=== PATIENT | female | born 1995 | race Caucasian/White ===

== ENCOUNTER 2018-01-27 20:37 | Emergency (ER) | payer SELFPAY ==
--- NOTE | 2018-01-27 20:51 | ER Report ---
History and Physical Time Seen By MD: 20:50 HPI/ROS CHIEF COMPLAINT: abnormal kidney function tests, abdominal pain HISTORY OF PRESENT ILLNESS: This is a 22 year old female. She was sent to the ER from [facility]. Had been there yesterday and labs done, came back with creatinine at 5.00 (labs were send outs), came back today for IV fluids and repeat labs and creatinine was up to 7.00. She has no history of kidney problems in the past. She gives a history of this weekend (Wednesday ) having sexual intercourse with a new partner. Condom broke and she took Plan B on Wednesday morning. Had intercourse again Wednesday night, and condom broke again , so Took Plan B again on Wednesday. Abdominal pain started Wednesday, slowly worsening over the week. Describes the pain as diffuse, but a little worse in the lower abdomen. No radiation. She is having a little bit of discharge. No history of STDs and had testing about 2 months ago. No fever or chills. No history of kidney problems in the past. No prior labs available for evaluation. The only other medications she is on is control. She uses aspirin for pain and has had about 15 aspirin over the last few days, and perhaps 6 of the over the counter 200mg Ibuprofen tablets. No other over the counter medications. REVIEW OF SYSTEMS: Constitutional: No fever or chills. Eyes: No vision changes. ENT: No sore throat. No congestion. Cardiovascular: No chest pain. No palpitations. Respiratory: No cough. No shortness of breath. Gastrointestinal: As above. Genitourinary: No dysuria. Musculoskeletal: No back pain. No extremity pain. Skin: No rashes. Neurological: No numbness. No weakness. Allergies: Coded Allergies: No Known Drug Allergies (Unverified , 01/27/18) Home Meds Reported Medications Promethazine Hcl (PROMETHAZINE HCL) 25 Mg Tablet, 25 MG PO Q8H, TAB 01/27/18 Hydrocodone Bit/Acetaminophen (HYDROCODON-ACETAMINOPHEN 5-325) 1 Each Tablet, 1- 2 EACH PO Q6H Y for PAIN, TAB 01/27/18 [ control] No Conflict Check, 1 TAB PO QDAY 01/27/18 Past Medical/Surgical History Urinary tract infections, thoracic rods for scoliosis, right ankle fracture, depression Reviewed Nurses Notes: Yes Constitutional Vital Sign - Last 24 Hours 01/27/18 01/27/18 01/27/18 01/27/18 20:47 20:47 20:50 20:52 Temp 97.6 Pulse 79 69 Resp 16 B/P (MAP) 138/94 (109) 138/94 (109) 138/94 Pulse Ox 96 98 O2 Delivery Room Air 01/27/18 01/27/18 01/27/18 01/27/18 20:52 21:00 21:00 21:07 Pulse 69 64 B/P (MAP) 140/100 (113) 140/100 (113) Pulse Ox 98 97 01/27/18 01/27/18 01/27/18 01/27/18 21:07 21:22 21:22 21:52 Pulse 64 69 69 69 Pulse Ox 97 91 91 97 01/27/18 01/27/18 01/27/18 01/27/18 21:52 22:07 22:07 22:22 Pulse 69 59 59 63 Pulse Ox 97 96 96 98 01/27/18 01/27/18 01/27/18 01/27/18 22:22 22:27 22:30 22:42 Pulse 63 56 ? Pulse Ox 98 99 96 01/27/18 01/27/18 01/27/18 01/27/18 22:44 22:44 22:45 22:57 Pulse 64 63 B/P (MAP) 127/97 (107) 127/97 (107) Pulse Ox 95 96 01/27/18 01/27/18 01/27/18 01/27/18 23:00 23:00 23:12 23:15 Pulse ??? 76 78 B/P (MAP) 123/81 (95) 123/81 (95) Pulse Ox 96 92 95 01/27/18 01/27/18 01/27/18 01/27/18 23:20 23:27 23:30 23:30 Pulse 66 81 B/P (MAP) 128/84 (99) 128/84 (99) Pulse Ox 95 94 01/27/18 01/27/18 01/27/18 01/27/18 23:35 23:42 23:50 23:57 Pulse 72 78 86 70 Pulse Ox 94 95 96 95 01/28/18 01/28/18 01/28/1818 00:00 00:00 00:05 00:12 Pulse 66 74 B/P (MAP) 119/87 (98) 119/87 (98) Pulse Ox 93 93 01/28/18 01/28/18 01/28/18 01/28/18 00:20 00:30 00:35 00:50 Pulse 64 86 64 B/P (MAP) 122/83 (96) Pulse Ox 94 95 95 01/28/18 01/28/18 01/28/18 01/28/18 01:00 01:05 01:15 01:30 Pulse 60 90 77 B/P (MAP) 112/73 (86) 103/75 (84) Pulse Ox 92 93 01/28/18 01/28/18 01/28/18 01/28/18 01:45 02:00 02:15 02:30 Pulse 73 77 76 61 B/P (MAP) 121/95 (104) 115/83 (94) Pulse Ox 96 91 97 92 01/28/18 01/28/18 01/28/18 01/28/18 02:45 03:00 03:15 03:30 Pulse 67 ? 85 B/P (MAP) 116/79 (91) 111/82 (92) Pulse Ox 90 90 90 93 01/28/18 01/28/18 01/28/18 01/28/18 03:45 04:00 04:15 04:30 Pulse 62 ??? 69 ??? B/P (MAP) 113/78 (90) 118/79 (92) Pulse Ox 92 92 93 93 01/28/18 01/28/18 01/28/18 01/28/18 04:45 05:00 05:15 05:20 Pulse 69 ??? 63 61 B/P (MAP) 130/83 (99) Pulse Ox 92 93 96 93 01/28/18 01/28/18 01/28/18 01/28/18 05:30 05:35 06:00 06:05 Pulse 66 ??? B/P (MAP) 124/90 (101) 122/88 (99) Pulse Ox 95 01/28/18 01/28/18 01/28/18 01/28/18 06:20 06:30 06:35 06:50 Pulse ??? 66 ??? B/P (MAP) 128/93 (105) Pulse Ox 95 98 01/28/18 01/28/18 01/28/18 01/28/18 07:00 07:05 07:20 07:30 Pulse 70 73 B/P (MAP) 124/93 (103) 114/76 (89) Pulse Ox 92 92 94 01/28/18 01/28/18 01/28/18 01/28/18 07:40 07:50 08:00 08:10 Pulse 75 75 86 B/P (MAP) 118/78 (91) Pulse Ox 90 91 94 96 01/28/18 01/28/18 08:20 08:30 Pulse 76 B/P (MAP) 122/90 (101) Pulse Ox 97 98 Physical Exam General Appearance: The patient is alert. Mild acute distress. Eyes: Pupils are equal, round. No pallor, injection or icterus. ENT: Mucous membranes are moist. Normal oral mucosa. Posterior oropharynx is normal. Neck: Supple and non tender. Respiratory: Lungs are clear to auscultation. Cardiovascular: Regular rate and rhythm. No murmurs, gallops or rubs. Normal capillary refill. No edema. Gastrointestinal: Abdomen is soft, diffuse tenderness, somewhat worse in lower abdomen. Nondistended. Guarding, but no rebound. Normal active bowel sounds. No costovertebral angle tenderness with percussion. Neurological: Alert and oriented x3. Skin: Warm and dry. Musculoskeletal: Extremities are nontender. No tenderness in palpation of the cervical, thoracic and lumbar spine. DIFFERENTIAL DIAGNOSIS: After history and physical exam, differential diagnosis was considered for abdominal pain, diffuse with evaluation for various causes of pain. And evaluation for new onset of acute renal failure, will look for various causes, although would be most concerned with glomerulonephritis. Medical Decision Making Data Points Result Diagram: 01/27/18 2147 01/28/18 0550 Laboratory Hematology Test 01/27/18 20:45 01/27/18 21:47 01/27/18 23:55 01/28/18 05:50 Urine Color Straw Urine Clarity Slightly-cloudy Urine pH 5.0 pH (4.8-9.5) Urine Specific Dugger 1.009 Urine Protein 100 mg/dL (NEGATIVE) Urine Glucose (UA) Negative mg/dL (NEGATIVE) Urine Ketones Negative mg/dL (NEGATIVE) Urine Blood Negative (NEGATIVE) Urine Nitrite Negative (NEGATIVE) Urine Bilirubin Negative (NEGATIVE) Urine Urobilinogen Negative mg/dL (0.2-1.9) Urine Leukocyte Esterase Small (NEGATIVE) Urine RBC 3 /HPF (0-2/HPF) Urine WBC 9 /HPF (0-5/HPF) Urine Squamous Epithelial Cells Many /LPF (</=FEW) Urine Bacteria Negative /HPF (NONE-FEW) Urine Mucus None /HPF (NONE-FEW) Red Blood Count 4.80 M/uL (4.17-5.56) Mean Corpuscular Volume 85.8 fL (80.0-96.0) Mean Corpuscular Hemoglobin 29.8 pg (26.0-33.0) Mean Corpuscular Hemoglobin Concent 34.7 g/dL (32.0-36.0) Red Cell Distribution Width 13.7 % (11.5-14.5) Mean Platelet Volume 8.1 fL (7.2-11.1) Neutrophils (%) (Auto) 78.3 % (39.4-72.5) Lymphocytes (%) (Auto) 13.5 % (17.6-49.6) Monocytes (%) (Auto) 6.5 % (4.1-12.4) Eosinophils (%) (Auto) 1.5 % (0.4-6.7) Basophils (%) (Auto) 0.2 % (0.3-1.4) Nucleated RBC Relative Count (auto) 0.0 /100WBC Neutrophils # (Auto) 9.4 K/uL (2.0-7.4) Lymphocytes # (Auto) 1.6 K/uL (1.3-3.6) Monocytes # (Auto) 0.8 K/uL (0.3-1.0) Eosinophils # (Auto) 0.2 K/uL (0.0-0.5) Basophils # (Auto) 0.0 K/uL (0.0-0.1) Nucleated RBC Absolute Count (auto) 0.00 K/uL Lactate 0.9 mmol/L (0.7-2.1) Magnesium Level 2.3 mg/dl (1.7-2.2) Direct Bilirubin 0.4 mg/dl (0.0-0.3) Total Creatine Kinase 94 U/L (30-135) Amylase Level 96 U/L (0-110) Lipase 60 U/L (23-300) Human Chorionic Gonadotropin, Qual Negative (NEGATIVE) Sodium Level 134 mmol/L (137-145) Potassium Level 4.2 mmol/L (3.5-5.0) Chloride Level 103 mmol/L (98-107) Carbon Dioxide Level 20 mmol/L (22-31) Blood Urea Nitrogen 37 mg/dl (7-18) Creatinine 6.70 mg/dl (0.52-1.04) Glomerular Filtration Rate Calc 7.9 Random Glucose 75 mg/dl (75-110) Calcium Level 7.8 mg/dl (8.4-10.2) Total Bilirubin 0.2 mg/dl (0.2-1.3) Aspartate Amino Transf (AST/SGOT) 14 U/L (0-35) Alanine Aminotransferase (ALT/SGPT) 26 U/L (0-56) Alkaline Phosphatase 61 U/L (0-126) Total Protein 6.7 gm/dl (6.3-8.2) Albumin 3.4 g/dl (3.5-5.0) Chemistry Test 01/27/18 20:45 01/27/18 21:47 01/27/18 23:55 01/28/18 05:50 Urine Color Straw Urine Clarity Slightly-cloudy Urine pH 5.0 pH (4.8-9.5) Urine Specific Dugger 1.009 Urine Protein 100 mg/dL (NEGATIVE) Urine Glucose (UA) Negative mg/dL (NEGATIVE) Urine Ketones Negative mg/dL (NEGATIVE) Urine Blood Negative (NEGATIVE) Urine Nitrite Negative (NEGATIVE) Urine Bilirubin Negative (NEGATIVE) Urine Urobilinogen Negative mg/dL (0.2-1.9) Urine Leukocyte Esterase Small (NEGATIVE) Urine RBC 3 /HPF (0-2/HPF) Urine WBC 9 /HPF (0-5/HPF) Urine Squamous Epithelial Cells Many /LPF (</=FEW) Urine Bacteria Negative /HPF (NONE-FEW) Urine Mucus None /HPF (NONE-FEW) White Blood Count 12.0 k/uL (4.5-11.0) Red Blood Count 4.80 M/uL (4.17-5.56) Hemoglobin 14.3 g/dL (12.0-16.0) Hematocrit 41.2 % (34.0-47.0) Mean Corpuscular Volume 85.8 fL (80.0-96.0) Mean Corpuscular Hemoglobin 29.8 pg (26.0-33.0) Mean Corpuscular Hemoglobin Concent 34.7 g/dL (32.0-36.0) Red Cell Distribution Width 13.7 % (11.5-14.5) Platelet Count 250 K/uL (150-450) Mean Platelet Volume 8.1 fL (7.2-11.1) Neutrophils (%) (Auto) 78.3 % (39.4-72.5) Lymphocytes (%) (Auto) 13.5 % (17.6-49.6) Monocytes (%) (Auto) 6.5 % (4.1-12.4) Eosinophils (%) (Auto) 1.5 % (0.4-6.7) Basophils (%) (Auto) 0.2 % (0.3-1.4) Nucleated RBC Relative Count (auto) 0.0 /100WBC Neutrophils # (Auto) 9.4 K/uL (2.0-7.4) Lymphocytes # (Auto) 1.6 K/uL (1.3-3.6) Monocytes # (Auto) 0.8 K/uL (0.3-1.0) Eosinophils # (Auto) 0.2 K/uL (0.0-0.5) Basophils # (Auto) 0.0 K/uL (0.0-0.1) Nucleated RBC Absolute Count (auto) 0.00 K/uL Lactate 0.9 mmol/L (0.7-2.1) Magnesium Level 2.3 mg/dl (1.7-2.2) Direct Bilirubin 0.4 mg/dl (0.0-0.3) Total Creatine Kinase 94 U/L (30-135) Amylase Level 96 U/L (0-110) Lipase 60 U/L (23-300) Human Chorionic Gonadotropin, Qual Negative (NEGATIVE) Glomerular Filtration Rate Calc 7.9 Calcium Level 7.8 mg/dl (8.4-10.2) Total Bilirubin 0.2 mg/dl (0.2-1.3) Aspartate Amino Transf (AST/SGOT) 14 U/L (0-35) Alanine Aminotransferase (ALT/SGPT) 26 U/L (0-56) Alkaline Phosphatase 61 U/L (0-126) Total Protein 6.7 gm/dl (6.3-8.2) Albumin 3.4 g/dl (3.5-5.0) Urinalysis Test 01/27/18 20:45 Urine Color Straw Urine Clarity Slightly-cloudy Urine pH 5.0 pH (4.8-9.5) Urine Specific Dugger 1.009 Urine Protein 100 mg/dL (NEGATIVE) Urine Glucose (UA) Negative mg/dL (NEGATIVE) Urine Ketones Negative mg/dL (NEGATIVE) Urine Blood Negative (NEGATIVE) Urine Nitrite Negative (NEGATIVE) Urine Bilirubin Negative (NEGATIVE) Urine Urobilinogen Negative mg/dL (0.2-1.9) Urine Leukocyte Esterase Small (NEGATIVE) Urine RBC 3 /HPF (0-2/HPF) Urine WBC 9 /HPF (0-5/HPF) Urine Squamous Epithelial Cells Many /LPF (</=FEW) Urine Bacteria Negative /HPF (NONE-FEW) Urine Mucus None /HPF (NONE-FEW) Microbiology Microbiology Date/Time Source Procedure Growth Status 01/27/18 23:55 Vaginal Wet Prep - Final Resulted 01/27/18 23:55 Vaginal Genital Culture - Preliminary Resulted EKG/Imaging Imaging KIDNEYS HISTORY: Abnormal BUN/creatinine. COMPARISON: None. FINDINGS: Kidneys Right: 11.3 x 6.6 x 4.4 cm. Normal parenchymal thickness and echogenicity. No hydronephrosis or visible shadowing calculus. No perinephric fluid collection. Resistive index is normal at 0.7. Left: 11.5 x 5.5 x 6.0 cm. Normal parenchymal thickness and echogenicity. No hydronephrosis or visible shadowing calculus. No perinephric fluid collection. Resistive index is normal at 0.6. Bladder: Bladder has a normal appearance for the degree of distention, measuring 6.3 x 4.9 x 6.0 cm. Prevoid bladder volume is 97 mL. Post void bladder volume is 7 mL. Both ureteral jets were identified. Abdomina aorta and IVC: Patent by Doppler ultrasound. IMPRESSION: 1. Normal renal ultrasound. Report Dictated By: Hortencia Smith at 01/27/2018 10:32 PM ACUTE ABDOMEN SERIES 3 VIEW HISTORY: Abdominal pain. Took 2 plan Bs in the past 4 days. Vomiting. Lower abdominal pain and abnormal renal results. COMPARISON: None. TECHNIQUE: PA upright view of the chest, AP supine and AP upright views of the abdomen. Chest: There is thoracolumbar spinal fusion hardware that is intact. The lungs are clear. The cardiac and mediastinal silhouettes are within normal limits. Bones and soft tissues are unremarkable. Abdomen: The distribution of bowel gas is normal, with bowel in all four quadrants as well as centrally. No free air. No dilated loops of bowel. No acute osseous abnormality. The lumbar spine angles toward the right from superior to inferior. There is a left pelvic phlebolith. IMPRESSION: 1. No acute cardiopulmonary process. 2. Unremarkable bowel gas pattern without obstruction. Report Dictated By: Hortencia Smith at 01/27/2018 11:15 PM ED Course/Re-evaluation Clinical Indication for ER IV: IV Access ED Course After review of her labs from urgent care and doing the initial evaluation as above, further labs were done to evaluate the abdominal pain and the renal problem. Renal ultrasound was done and negative. CPK was done and negative. Urinalysis showed protein, but no signs of blood or infection, did show contamination, likely from vaginal discharge, and a urine culture is ordered. Pelvic exam was done and shows thick white discharge as noted. Wet prep shows a few clue cells, genital culture and Chlamydia and GC pending. Blood pressure varying between 130-150 systolic pressures and 80-90 diastolic. Patient has had several doses of Morphine 4mg IV for pain and Zofran 4mg IV for nausea. Discussed with Dr. Ya, nephrology at [facility], regarding results. Based on the results thus far, unable to determine what is causing the problem, but would suggest that the most likely diagnosis would be an acute glomerulonephritis. Waiting for an outpatient evaluation will take too long and recommended gentle hydration and transfer to [facility] in the morning. The patient's parents arrived and with the patient's permission, reviewed the findings so far with them and answered what questions I was able to. Discussed with Dr. Horn, hospitalist at [facility], and reviewed the case with her and she accepted the patient for transfer there. Decision to Disposition Date: Jan 28, 2018 Decision to Disposition Time: 06:47 Depart Departure Latest Vital Signs Vital Signs Date Time Temp Pulse Resp B/P (MAP) Pulse Ox O2 Delivery O2 Flow Rate FiO2 01/28/18 08:30 122/90 (101) 98 01/28/18 08:20 76 01/27/18 20:50 97.6 16 Room Air Impression: Primary Impression: Acute renal failure Additional Impression: Abdominal pain Condition: Condition Unchanged Disposition: XFER TO ACUTE CARE [facility]OSPITAL Problem Qualifiers Primary Impression: Acute renal failure Acute renal failure type: unspecified Qualified Codes: N17.9 - Acute kidney failure, unspecified Additional Impression: Abdominal pain Abdominal location: generalized Qualified Codes: R10.84 - Generalized abdominal pain GERRI RAYMOND MD Jan 27, 2018 20:51
[2018-01-27] MEDS ORDERED: LOR5/325 PO (20:58)
[2018-01-27] MEDS ORDERED: PROM-110 PO (20:58)
[2018-01-27] MEDS ORDERED: birth control PO (20:58)
[2018-01-27] MEDS ORDERED: NS(*) 0.9% 1000 ML BAG 1,000 ML IV ONE (21:14)
[2018-01-27 21:58] LABS: PLATELET COUNT, AUTOMATED 250 K/uL (150-450)
[2018-01-27] MEDS ORDERED: ONDANSETRON 4 MG/2 ML VIAL IVP ONE (22:00)
[2018-01-27] MEDS ORDERED: MORPHINE 4 MG/ML SDV IVP ONE (22:00)
--- NOTE | 2018-01-27 22:38 | RADIOLOGY IMAGING REPORT ---
FACILITY: [facility] - [place] PATIENT NAME: Norris Reinoso : 1995 MR: [id number] V: [id number] EXAM DATE: ORDERING PHYSICIAN: GERRI RAYMOND TECHNOLOGIST: Location: [facility] [place] Patient: Norris Reinoso : 1995 Visit/Account:[id number] Date of Sevice: 01/27/2018 KIDNEYS HISTORY: Abnormal BUN/creatinine. COMPARISON: None. FINDINGS: Kidneys Right: 11.3 x 6.6 x 4.4 cm. Normal parenchymal thickness and echogenicity. No hydronephrosis or visib le shadowing calculus. No perinephric fluid collection. Resistive index is normal at 0.7. Left: 11.5 x 5.5 x 6.0 cm. Normal parenchymal thickness and echogenicity. No hydronephrosis or visibl e shadowing calculus. No perinephric fluid collection. Resistive index is normal at 0.6. Bladder: Bladder has a normal appearance for the degree of distention, measuring 6.3 x 4.9 x 6.0 cm. Prevoid bladder volume is 97 mL. Post void bladder volume is 7 mL. Both ureteral jets were identified . Abdomina aorta and IVC: Patent by Doppler ultrasound. IMPRESSION: 1. Normal renal ultrasound. Report Dictated By: Hortencia Smith at 01/27/2018 10:32 PM Report E-Signed By: Hortencia Smith at 01/27/2018 10:35 PM WSN:[id number]
--- NOTE | 2018-01-27 23:21 | RADIOLOGY IMAGING REPORT ---
FACILITY: [facility] - [place] PATIENT NAME: Norris Reinoso : 1995 MR: [id number] V: [id number] EXAM DATE: ORDERING PHYSICIAN: GERRI RAYMOND TECHNOLOGIST: Location: [facility] Patient: Norris Reinoso : 1995 Visit/Account:[id number] Date of Sevice: 01/27/2018 ACUTE ABDOMEN SERIES 3 VIEW HISTORY: Abdominal pain. Took 2 plan Bs in the past 4 days. Vomiting. Lower abdominal pain and abnorm al renal results. COMPARISON: None. TECHNIQUE: PA upright view of the chest, AP supine and AP upright views of the abdomen. Chest: There is thoracolumbar spinal fusion hardware that is intact. The lungs are clear. The cardiac and mediastinal silhouettes are within normal limits. Bones and soft tissues are unremarkable. Abdomen: The distribution of bowel gas is normal, with bowel in all four quadrants as well as central ly. No free air. No dilated loops of bowel. No acute osseous abnormality. The lumbar spine angles tow vivek the right from superior to inferior. There is a left pelvic phlebolith. IMPRESSION: 1. No acute cardiopulmonary process. 2. Unremarkable bowel gas pattern without obstruction. Report Dictated By: Hortencia Smith at 01/27/2018 11:15 PM Report E-Signed By: Hortencia Smith at 01/27/2018 11:16 PM WSN:[id number]
[2018-01-28] MEDS ORDERED: MORPHINE 4 MG/ML SDV IVP ONE ×2 (01:55→04:45)
[2018-01-28] MEDS ORDERED: NS(*) 0.9% 1000 ML BAG 1,000 ML IV ONE (01:55)
[2018-01-28] MEDS ORDERED: ONDANSETRON 4 MG/2 ML VIAL IVP ONE ×2 (01:55→08:15)
[2018-01-28] MEDS ORDERED: HYDROmorphone* 1 MG/ML 1 MG/ML ML IVP ONE (06:50)
[2018-01-28 08:30] VITALS: BP 122/90
== END 2018-01-28 08:43 | disposition short-term general hospital (02) ==
LOC: ER 20:50
DX: N17.9 Acute kidney failure, unspecified (principal); R10.84 Generalized abdominal pain
CPT/HCPCS: 74022; 76705; 81001; 82150; 82550; 83605; 83690; 83735; 84703; 85025; 87070; 87210; 87491; 87591; 96361; 96374; 96375; 96376; 99285; J1170; J2270; J2405; J7030; 82040; 82247; 82248; 82310; 82374; 82435; 82565; 82947; 84075; 84132; 84155; 84295; 84450; 84460; 84520

== ENCOUNTER → 2018-01-27 | Outpatient (REF) | payer SELFPAY ==
[~2018-01-27] MED LIST: LOR5/325 PO; PROM-110 PO; birth control PO
== END ==
LOC: ZZSTITCHES 19:44
PROVIDERS: ATTEND Physician Assistant
DX: R79.89 Other specified abnormal findings of blood chemistry (principal)
CPT/HCPCS: 82310; 82374; 82435; 82565; 82947; 84132; 84295; 84520

== ENCOUNTER → 2018-01-28 | Outpatient (CLI) | payer SELFPAY | LOC: AMB 08:25 | PROVIDERS: ATTEND Nurse Practitioner | DX: N17.9 Acute kidney failure, unspecified (principal) | CPT/HCPCS: A0425; A0426 ==

== ENCOUNTER 2018-06-21 16:49 | Emergency (ER) | payer SELFPAY ==
--- NOTE | 2018-06-21 16:59 | ER Report ---
History and Physical Time Seen By MD: 16:59 Hx. of Stated Complaint: PT HAS HAD SHARP CHEST PAIN ON THE LEFT SIDE ON AND OFF FOR 1 MONTH. PT SAW HER PCP LAST WEEK, WAS TOLD TO COME BACK THIS WEEK FOR A BREAST EXAM. PT FELT PAIN WAS INCREASING, AND RADIATES DOWN HER CHEST TO HER BACK. HPI/ROS CHIEF COMPLAINT: Chest pain HISTORY OF PRESENT ILLNESS: 22-year-old female patient presents to emergency room with complaint of chest pain. Patient states that she has been having pain intermittently for the past several months. She states the pain has become more common with the last month. She states she was seen in outpatient clinic and was discharged home. They recommended that she have a breast exam done the following week. She states that she came here to the emergency room for further evaluation. She states that she does have pain consistently, however it get worse when she lays down. She states that she is not had any fevers, chills, nausea, vomiting or diarrhea. Patient states she has not taken any medication for this. Patient states that they have not done any laboratory or radiographic studies for this. REVIEW OF SYSTEMS: Respiratory: No cough, no dyspnea. Cardiovascular: As noted above Gastrointestinal: No vomiting, no abdominal pain. Musculoskeletal: No back pain. Allergies: Coded Allergies: No Known Drug Allergies (Unverified , 01/27/18) Home Meds Active Scripts Ketorolac Tromethamine (KETOROLAC TROMETHAMINE) 10 Mg Tab, 10 MG PO Q6H, #20 TAB Prov:NICK BRITO [employer] 06/21/18 Reported Medications Promethazine Hcl (PROMETHAZINE HCL) 25 Mg Tablet, 25 MG PO Q8H, TAB 01/27/18 Hydrocodone Bit/Acetaminophen (HYDROCODON-ACETAMINOPHEN 5-325) 1 Each Tablet, 1- 2 EACH PO Q6H Y for PAIN, TAB 01/27/18 [ control] No Conflict Check, 1 TAB PO QDAY 01/27/18 Past Medical/Surgical History Patient has a past medical history of kidney failure, frequent UTI, depression. Patient has history of back surgery. Reviewed Nurses Notes: Yes Constitutional Vital Sign - Last 24 Hours 06/21/18 06/21/18 06/21/18 06/21/18 16:52 16:53 17:04 17:17 Temp 98.5 Pulse 67 67 Resp 18 33 B/P (MAP) 119/56 (77) 119/56 111/86 (94) Pulse Ox 96 99 O2 Delivery Room Air 06/21/18 06/21/18 06/21/18 06/21/18 17:19 17:34 17:39 17:54 Pulse 60 62 61 63 Resp 30 17 16 17 06/21/18 06/21/18 06/21/18 06/21/18 18:00 18:09 18:24 18:39 Pulse 55 52 52 Resp 18 19 12 B/P (MAP) 117/53 (74) Intake and Output 06/21/18 06/21/18 06/22/18 15:00 23:00 07:00 Intake Total 1000 ml Balance 1000 ml Physical Exam General Appearance: The patient is alert, has no immediate need for airway protection and no current signs of toxicity. Respiratory: Chest is non tender, lungs are clear to auscultation, there is a rounded noted in the left lower lobe. Breast exam was done and there were no acute findings, no lumps or areas of concern. Patient had no nipple deviation and no peau d'orange. This was chaperoned. Cardiac: regular rate and rhythm Gastrointestinal: Abdomen is soft and non tender, no masses, bowel sounds normal. Musculoskeletal: Neck: Neck is supple and non tender. Extremities have full range of motion and are non tender. Skin: No rashes or lesions. DIFFERENTIAL DIAGNOSIS: After history and physical exam differential diagnosis was considered for pleurisy, pneumonia, MO, muscle skeletal pain. Medical Decision Making Data Points Result Diagram: 06/21/18 1712 06/21/18 1712 Laboratory Hematology Test 06/21/18 17:12 Red Blood Count 5.32 M/uL (4.17-5.56) Mean Corpuscular Volume 86.1 fL (80.0-96.0) Mean Corpuscular Hemoglobin 29.6 pg (26.0-33.0) Mean Corpuscular Hemoglobin Concent 34.4 g/dL (32.0-36.0) Red Cell Distribution Width 14.4 % (11.5-14.5) Mean Platelet Volume 8.2 fL (7.2-11.1) Neutrophils (%) (Auto) 55.2 % (39.4-72.5) Lymphocytes (%) (Auto) 34.1 % (17.6-49.6) Monocytes (%) (Auto) 7.6 % (4.1-12.4) Eosinophils (%) (Auto) 2.6 % (0.4-6.7) Basophils (%) (Auto) 0.5 % (0.3-1.4) Nucleated RBC Relative Count (auto) 0.0 /100WBC Neutrophils # (Auto) 3.4 K/uL (2.0-7.4) Lymphocytes # (Auto) 2.1 K/uL (1.3-3.6) Monocytes # (Auto) 0.5 K/uL (0.3-1.0) Eosinophils # (Auto) 0.2 K/uL (0.0-0.5) Basophils # (Auto) 0.0 K/uL (0.0-0.1) Nucleated RBC Absolute Count (auto) 0.00 K/uL D-Dimer Quantitative (PE/DVT) 0.31 ug/ml (0-0.50) Sodium Level 140 mmol/L (137-145) Potassium Level 3.8 mmol/L (3.5-5.0) Chloride Level 104 mmol/L (98-107) Carbon Dioxide Level 25 mmol/L (22-31) Blood Urea Nitrogen 14 mg/dl (7-18) Creatinine 0.80 mg/dl (0.52-1.04) Glomerular Filtration Rate Calc > 60.0 Random Glucose 87 mg/dl (75-110) Calcium Level 9.3 mg/dl (8.4-10.2) Total Bilirubin 0.5 mg/dl (0.2-1.3) Aspartate Amino Transf (AST/SGOT) 28 U/L (0-35) Alanine Aminotransferase (ALT/SGPT) 24 U/L (0-56) Alkaline Phosphatase 38 U/L (0-126) Troponin I < 0.012 ng/ml Total Protein 7.8 g/dl (6.3-8.2) Albumin 4.7 g/dl (3.5-5.0) Human Chorionic Gonadotropin, Qual Negative (NEGATIVE) Chemistry Test 06/21/18 17:12 White Blood Count 6.1 k/uL (4.5-11.0) Red Blood Count 5.32 M/uL (4.17-5.56) Hemoglobin 15.7 g/dL (12.0-16.0) Hematocrit 45.8 % (34.0-47.0) Mean Corpuscular Volume 86.1 fL (80.0-96.0) Mean Corpuscular Hemoglobin 29.6 pg (26.0-33.0) Mean Corpuscular Hemoglobin Concent 34.4 g/dL (32.0-36.0) Red Cell Distribution Width 14.4 % (11.5-14.5) Platelet Count 212 K/uL (150-450) Mean Platelet Volume 8.2 fL (7.2-11.1) Neutrophils (%) (Auto) 55.2 % (39.4-72.5) Lymphocytes (%) (Auto) 34.1 % (17.6-49.6) Monocytes (%) (Auto) 7.6 % (4.1-12.4) Eosinophils (%) (Auto) 2.6 % (0.4-6.7) Basophils (%) (Auto) 0.5 % (0.3-1.4) Nucleated RBC Relative Count (auto) 0.0 /100WBC Neutrophils # (Auto) 3.4 K/uL (2.0-7.4) Lymphocytes # (Auto) 2.1 K/uL (1.3-3.6) Monocytes # (Auto) 0.5 K/uL (0.3-1.0) Eosinophils # (Auto) 0.2 K/uL (0.0-0.5) Basophils # (Auto) 0.0 K/uL (0.0-0.1) Nucleated RBC Absolute Count (auto) 0.00 K/uL D-Dimer Quantitative (PE/DVT) 0.31 ug/ml (0-0.50) Glomerular Filtration Rate Calc > 60.0 Calcium Level 9.3 mg/dl (8.4-10.2) Total Bilirubin 0.5 mg/dl (0.2-1.3) Aspartate Amino Transf (AST/SGOT) 28 U/L (0-35) Alanine Aminotransferase (ALT/SGPT) 24 U/L (0-56) Alkaline Phosphatase 38 U/L (0-126) Troponin I < 0.012 ng/ml Total Protein 7.8 g/dl (6.3-8.2) Albumin 4.7 g/dl (3.5-5.0) Human Chorionic Gonadotropin, Qual Negative (NEGATIVE) Coagulation Test 06/21/18 17:12 D-Dimer Quantitative (PE/DVT) 0.31 ug/ml EKG/Imaging EKG Interpretation 12 lead EKG: Rhythm: Normal sinus rhythm with sinus arrhythmia, ventricular rate is 65 bpm [place]: normal QRS: normal ST segments: normal Imaging CHEST PA AND LAT COMPARISONS: None. ADDITIONAL PERTINENT HISTORY: Chest pain FINDINGS: Cardiomediastinal silhouette: Negative. Pulmonary vasculature: Negative. Lung benedict: Negative. Pleural spaces: Negative. Osseous structures: Patient status post previous posterior interbody fusion of the thoracic spine Surrounding soft tissues: Negative. IMPRESSION: No evidence of acute cardiopulmonary disease. Report Dictated By: Tevin Damico MD at 06/21/2018 5:51 PM Report E-Signed By: Tevin Damico MD at 06/21/2018 5:52 PM ED Course/Re-evaluation ED Course Patient was admitted to an exam room, history and physical were obtained. Differential diagnoses were considered. On exam lungs are clear, although there was a rub noted in the left lower lobe, heart was regular, abdomen was soft nontender. Patient is seen primary care provider who had recommended that a breast exam was done. That was done with a nurse as a muffler hand. There is no acute findings noted. A CBC, CMP, troponin, EKG, chest x-ray, d-dimer were done. The labs were unremarkable, negative d-dimer, negative troponin. EKG showed a normal sinus rhythm with a sinus arrhythmia. Chest x-ray showed no acute findings. I discussed the findings with the patient. I believe that she is likely having pleurisy. I believe this been going on for several months. We will go ahead and treat her with an anti-inflammatory, Toradol, she is to take 4 times a day for the next 5 days. I suspect this is going to improve her discomfort. She should follow-up with her primary care provider in the next week for further evaluation as to the underlying cause of the pleurisy. Patient verbalized understanding and agreement with plan. As I was discussing the plan with patient the patient requested a referral to urology. States that she has had multiple UTIs and was recommended that she have a evaluation by urologist. We will go ahead and give her the information for Dr. Scruggs and . Decision to Disposition Date: Jun 21, 2018 Decision to Disposition Time: 18:09 Depart Departure Latest Vital Signs Vital Signs Date Time Temp Pulse Resp B/P (MAP) Pulse Ox O2 Delivery O2 Flow Rate FiO2 06/21/18 18:39 52 12 06/21/18 18:00 117/53 (74) 06/21/18 17:04 99 06/21/18 16:53 98.5 Room Air Impression: Primary Impression: Chest pain Additional Impression: Pleurisy Condition: Improved Disposition: HOME OR SELF-CARE Referrals: FATOU SMITH MD, LYLE MD New Scripts Ketorolac Tromethamine (KETOROLAC TROMETHAMINE) 10 Mg Tab 10 MG PO Q6H, #20 TAB Prov: NICK BRITO 06/21/18 Patient Instructions: Pleurisy (ED) Additional Instructions: Continue with normal activities. Get plenty of rest. Limit activity by pain. Take the medication as prescribed. Follow up with your primary care provider in the next 1-2 weeks. Return to the ER if condition worsens. You may follow up with one of the urologists in town for your recurrent UTI. Problem Qualifiers Primary Impression: Chest pain Chest pain type: other chest pain Qualified Codes: R07.89 - Other chest pain NICK BRITO Jun 21, 2018 16:59
[2018-06-21] MEDS ORDERED: NS(*) 0.9% 1000 ML BAG 1,000 ML IV ONE (17:12)
[2018-06-21] MEDS ORDERED: ASPIRIN 81 MG CHEW PO ONE (17:15)
[2018-06-21 17:23] LABS: PLATELET COUNT, AUTOMATED 212 K/uL (150-450)
--- NOTE | 2018-06-21 17:36 | EKG ---
FACILITY: [facility] - [place] PATIENT NAME: EULA ROY : [id number] MR: [id number] V: [id number] EXAM DATE: ORDERING PHYSICIAN: NICK BRITO TECHNOLOGIST: Test Reason : CHEST PAIN Blood Pressure : / mmHG Vent. Rate : 065 BPM Atrial Rate : 065 BPM P-R Int : 140 ms QRS Dur : 088 ms QT Int : 386 ms P-R-T Axes : 004 057 027 degrees QTc Int : 401 ms Sinus arrhythmia Nonspecific ST findings - probable early repolarization, but cannot exclude other causes No previous ECGs available Confirmed by ALONDRA MCMULLEN ([id number]) on 06/22/2018 6:19:31 AM Referred By: Confirmed By:ALONDRA MCMULLEN
--- NOTE | 2018-06-21 17:56 | RADIOLOGY IMAGING REPORT ---
FACILITY: [facility] - [place] PATIENT NAME: Norris Reinoso : 1995 MR: [id number] V: [id number] EXAM DATE: ORDERING PHYSICIAN: NICK BRITO TECHNOLOGIST: Location: [facility] - [place] Patient: Norris Reinoso : 1995 Visit/Account:[id number] Date of Sevice: 06/21/2018 CHEST PA AND LAT COMPARISONS: None. ADDITIONAL PERTINENT HISTORY: Chest pain FINDINGS: Cardiomediastinal silhouette: Negative. Pulmonary vasculature: Negative. Lung benedict: Negative. Pleural spaces: Negative. Osseous structures: Patient status post previous posterior interbody fusion of the thoracic spine Surrounding soft tissues: Negative. IMPRESSION: No evidence of acute cardiopulmonary disease. Report Dictated By: Tevin Damico MD at 06/21/2018 5:51 PM Report E-Signed By: Tevin Damico MD at 06/21/2018 5:52 PM WSN:[id number]
[2018-06-21 18:00] VITALS: BP 117/53
[2018-06-21] MEDS ORDERED: KET10 PO (18:07)
== END 2018-06-21 18:45 | disposition home or self-care (01) ==
LOC: ER 17:02
DX: R09.1 Pleurisy (principal)
CPT/HCPCS: 71046; 82040; 82247; 82310; 82374; 82435; 82565; 82947; 84075; 84132; 84155; 84295; 84450; 84460; 84484; 84520; 84703; 85025; 85379; 93005; 96360; 99284; J7030

== ENCOUNTER → 2018-08-10 | Outpatient (REF) | payer SELFPAY ==
[~2018-08-10] MED LIST changes: +KET10 PO
== END ==
LOC: ZZSENDIN 12:22
PROVIDERS: ATTEND Urology
DX: N39.0 Urinary tract infection, site not specified (principal)
CPT/HCPCS: 87088